=== PATIENT | female | born 1965 | race Two or more races ===

== ENCOUNTER 2024-12-02 12:37 | Emergency (ER) | payer MEDICAID, SELFPAY ==
[2024-12-02] VITALS (8 sets, daily range): BP systolic 140–174; BP diastolic 79–86; PULSE 86–110; RESP 18–28; TEMP 36.6–36.9; O2SAT 94–100
--- NOTE | 2024-12-02 12:44 | EKG_ITS ---
[facility] Test Date: 2024-12-02 Pat Name: MOE LEDBETTER Department: Room: - Gender: Female Jacquard Loom Weaver: : 1965 Requested By: ED Temporary Provider Order Number: [id number] Reading MD: ED Temporary Provider Measurements Intervals [place] Rate: 98 P: 60 NM: 150 QRS: 10 QRSD: 80 T: 65 QT: 344 QTc: 441 Interpretive Statements SINUS RHYTHM No previous ECG available for comparison /store/S0/[id number]/ecg/[id number].pdf
--- NOTE | 2024-12-02 12:52 | XR_ITS ---
Examination: AP chest single view TECHNIQUE: AP portable upright chest single view Date and time: December 02, 2024 1334 hours INDICATIONS: Coughing shortness of breath today. FINDINGS: Minimal opacity left base Normal heart size Right lung clear Prominent osteopenia IMPRESSION:: Suspicious for early left base pneumonia
--- NOTE | 2024-12-02 12:53 | PD.EDSOB ---
ED SOB =RME/HPI General Chief Complaint: Shortness of Breath/Dyspnea Stated Complaint: SOB X1 DAY Time Seen by Provider: 12/02/24 14:00 Source: patient Arrival date/time: 12/02/24 12:37 59-year-old female with no known medical history presents to the emergency room with a chief complaint of shortness of breath x 1 Mode of arrival: ambulatory Limitations: no limitations Related Data Allergies Allergy/AdvReac Type Severity Reaction Status Date / Time No Known Allergies Allergy Unverified 12/02/24 17:52 ED Exam General Limitations: Present no limitations Course Orders Category Date Time Status Bedside Influenza A&B Antigen Test NOW Care 12/02/24 12:52 Active EKG (ED ONLY) *Do not use* NOW Care 12/02/24 12:45 Completed EKG (ED Only) Stat Exams 12/02/24 12:44 Draft XR chest 1V portable Stat Exams 12/02/24 12:52 Completed COVID-19 Antigen (In-House) Stat Lab 12/02/24 Ordered Strep A Rapid Stat Lab 12/02/24 14:16 Ordered ALBUTEROL RT 0.5ml [Proventil Rt 0.5ml] Med 12/02/24 17:48 Discontinued 10 mg INH X1 ONE ALBUTEROL RT 0.5ml [Proventil Rt 0.5ml] Med 12/02/24 14:14 Discontinued 5 mg INH X1 ONE Albuterol/Ipratr Rt Mora [Duoneb Rt Mora] Med 12/02/24 12:52 Discontinued 3 ml INH X1 ONE Albuterol/Ipratr Rt Mora [Duoneb Rt Mora] Med 12/02/24 17:40 Discontinued 3 ml INH X1 ONE Dexamethasone Inj [Decadron Inj] Med 12/02/24 12:52 Discontinued 10 mg PO X1 ONE Vital Signs Vital signs: Vital Signs Temperature 98.2 F 12/02/24 12:43 Pulse Rate 103 H 12/02/24 12:43 Respiratory Rate 24 H 12/02/24 12:43 Blood Pressure 172/86 H 12/02/24 12:43 Pulse Oximetry (%) 94 L 12/02/24 12:43 Oxygen Delivery Method Room Air 12/02/24 12:43 Shortness of Breath / Dyspnea Medications / Prescriptions Medication administrations:: Medication Administration History Discontinued Medications Albuterol (Albuterol Rt 2.5 Mg/0.5 Ml Nebu) 5 mg INH X1 ONE Stop: 12/02/24 14:15 Albuterol (Albuterol Rt 2.5 Mg/0.5 Ml Nebu) 10 mg INH X1 ONE Stop: 12/02/24 17:49 Albuterol/Ipratropium (Albuterol/Ipratropium (Duoneb) Rt Mora 3 Ml Nebu) 3 ml INH X1 ONE Stop: 12/02/24 12:53 Last Admin: 12/02/24 13:09 Dose: 3 ml Documented By: GRISELDA Albuterol/Ipratropium (Albuterol/Ipratropium (Duoneb) Rt Mora 3 Ml Nebu) 3 ml INH X1 ONE Stop: 12/02/24 17:41 Dexamethasone Sodium Phosphate (Dexamethasone Sod Phos Inj 10 Mg/Ml Vial) 10 mg PO X1 ONE Stop: 12/02/24 12:53 Last Admin: 12/02/24 13:21 Dose: 10 mg Documented By: VANESSA Comments: GIVEN PO PER PROVIDER ORDERS Discharge Plan Prescriptions/Referrals Referrals: Navneet Badillo PA-C [Primary Care Provider] - In 1 week Patient/Caregiver Discharge Instructions Print Language: Maltese
[2024-12-02] MEDS: ALBUTEROL/IPRATROPIUM (Duoneb) RT SOL 3 ML NEBU INH (13:09)
[2024-12-02] MEDS: DEXAMETHASONE SOD PHOS INJ 10 MG/ML VIAL PO (13:21)
--- NOTE | 2024-12-02 17:30 | PC.NURSE ---
Called RT for another nebulizer tx.
--- NOTE | 2024-12-02 17:54 | PD.EDRME ---
Rapid Medical Screening Exam RME Arrival date/time: 12/02/24 12:37 59-year-old female with no known medical history presents to the emergency room with a chief complaint of shortness of breath x 1 day I have greeted and performed a focused initial assessment of this patient. A comprehensive ED assessment and evaluation of the patient, analysis of all test results, and completion of the medical decision making process will be conducted by additional ED providers. Chief Complaint: Shortness of Breath/Dyspnea Time Seen by Provider: 12/02/24 14:00 Vital signs: Vital Signs Temperature 98.2 F 12/02/24 12:43 Pulse Rate 103 H 12/02/24 12:43 Respiratory Rate 24 H 12/02/24 12:43 Blood Pressure 172/86 H 12/02/24 12:43 Pulse Oximetry (%) 94 L 12/02/24 12:43 Oxygen Delivery Method Room Air 12/02/24 12:43 Vital signs reviewed by provider: Yes
[2024-12-02] MEDS: ALBUTEROL RT 2.5 MG/0.5 ML NEBU 10 MG INH (18:00)
[2024-12-02 18:33] LABS: Strep A Rapid Negative (Negative)
[2024-12-02 18:34] LABS: COVID-19 Antigen (In-House) Negative (Negative)
--- NOTE | 2024-12-02 21:34 | EDNOTE_ITS ---
ED SOB =RME/HPI General Chief Complaint: Shortness of Breath/Dyspnea Stated Complaint: SOB X1 DAY Time Seen by Provider: 12/02/24 14:00 Arrival date/time: 12/02/24 12:37 RME / HPI RME / HPI Narrative: 12/02/24 12:37 59-year-old female with no known medical history presents to the emergency room with a chief complaint of shortness of breath x 1 day I have greeted and performed a focused initial assessment of this patient. A comprehensive ED assessment and evaluation of the patient, analysis of all test results, and completion of the medical decision making process will be conducted by additional ED providers. Related Data Previous Rx's ?Medication ?Instructions ?Recorded albuterol sulfate 90 mcg/actuation 2 puff inhalation Q 4H PRN 12/02/24 aerosol inhaler shortness of breath or wheez ing #8.5 grams cetirizine 10 mg tablet (Zyrtec) 10 mg PO QDAY PRN all ergy symptoms 12/02/24 #30 tabs doxycycline hyclate 100 mg 100 mg PO BID #14 tabs 06/28 tablet,delayed release montelukast 10 mg tablet 10 mg PO QPM #30 tabs (Singulair) Allergies Allergy/AdvReac Type Severity Reaction Status Date / Time No Known Allergies Allergy Unverified 12/02/24 17:52 Course Orders Category Date Time Status Bedside Influenza A&B Antigen Test NOW Care 12/02/24 12:52 Completed EKG (ED ONLY) *Do not use* NOW Care 12/02/24 12:45 Completed EKG (ED Only) Stat Exams 12/02/24 12:44 Draft XR chest 1V portable Stat Exams 12/02/24 12:52 Completed COVID-19 Antigen (In-House) Stat Lab 12/02/24 18:01 Completed Strep A Rapid Stat Lab 12/02/24 17:58 Completed ALBUTEROL RT 0.5ml [Proventil Rt 0.5ml] Med 12/02/24 17:48 Discontinued 10 mg INH X1 ONE ALBUTEROL RT 0.5ml [Proventil Rt 0.5ml] Med 12/02/24 14:14 Discontinued 5 mg INH X1 ONE Albuterol/Ipratr Rt Mora [Duoneb Rt Mora] Med 12/02/24 12:52 Discontinued 3 ml INH X1 ONE Albuterol/Ipratr Rt Mora [Duoneb Rt Mora] Med 12/02/24 17:40 Discontinued 3 ml INH X1 ONE Dexamethasone Inj [Decadron Inj] Med 12/02/24 12:52 Discontinued 10 mg PO X1 ONE Vital Signs Vital signs: Vital Signs Temperature 98.2 F 12/02/24 12:43 Pulse Rate 103 H 12/02/24 12:43 Respiratory Rate 24 H 12/02/24 12:43 Blood Pressure 172/86 H 12/02/24 12:43 Pulse Oximetry (%) 94 L 12/02/24 12:43 Oxygen Delivery Method Room Air 12/02/24 12:43 Shortness of Breath / Dyspnea Medications / Prescriptions Medication administrations:: Medication Administration History Discontinued Medications Albuterol (Albuterol Rt 2.5 Mg/0.5 Ml Nebu) 5 mg INH X1 ONE Stop: 12/02/24 14:15 Last Admin: 12/02/24 19:12 Dose: Not Given Documented By: HYACINTH Non-Admin Reason: Duplicate Medication on eMAR Albuterol (Albuterol Rt 2.5 Mg/0.5 Ml Nebu) 10 mg INH X1 ONE Stop: 12/02/24 17:49 Last Admin: 12/02/24 18:00 Dose: 10 mg Documented By: HYACINTH Albuterol/Ipratropium (Albuterol/Ipratropium (Duoneb) Rt Mora 3 Ml Nebu) 3 ml INH X1 ONE Stop: 12/02/24 12:53 Last Admin: 12/02/24 13:09 Dose: 3 ml Documented By: GRISELDA Albuterol/Ipratropium (Albuterol/Ipratropium (Duoneb) Rt Mora 3 Ml Nebu) 3 ml INH X1 ONE Stop: 12/02/24 17:41 Last Admin: 12/02/24 19:13 Dose: Not Given Documented By: HYACINTH Non-Admin Reason: Duplicate Medication on eMAR Dexamethasone Sodium Phosphate (Dexamethasone Sod Phos Inj 10 Mg/Ml Vial) 10 mg PO X1 ONE Stop: 12/02/24 12:53 Last Admin: 12/02/24 13:21 Dose: 10 mg Documented By: VANESSA Comments: GIVEN PO PER PROVIDER ORDERS Discharge Plan Plan Patient Disposition: HOME (Self Care) Discharge Disposition comment: Stable Prescriptions/Referrals Prescriptions/Med Rec: New albuterol sulfate 90 mcg/actuation HFA aerosol inhaler 2 puff inhalation Q4H PRN (Reason: shortness of breath or wheezing) Qty: 8.5 0RF montelukast [Singulair] 10 mg tablet 10 mg PO QPM Qty: 30 0RF cetirizine [Zyrtec] 10 mg tablet 10 mg PO QDAY PRN (Reason: allergy symptoms) Qty: 30 0RF doxycycline hyclate 100 mg tablet,delayed release (DR/EC) 100 mg PO BID Qty: 14 0RF Referrals: Navneet Badillo PA-C [Primary Care Provider] - In 1 week Problem List Clinical Impression: Asthma with exacerbation, Community acquired pneumonia Patient/Caregiver Discharge Instructions Education Materials: ED Asthma, Acute (Adult), ED Pneumonia (Adult) Additional Instructions: [place] los antibioticos phillip lo prescrito y complete elcurso a pesar de que puede sentirse major. Ivanna un seguimiento con jernigan medico de atencion primaria en 24 a 48 horas. Regresar al departamento de emergencias por cualquier sintoma nuevo o que empeore. Print Language: [place] Stand Alone Forms: Maryam Award Info., Patient Portal Info Letter PA/JACK Supervising Physician PA/JACK Supervising Physician: Dr. Bateman
== END 2024-12-02 22:09 | disposition home or self-care (01) ==
PROVIDERS: Physician Assistant; Emergency Provider Emergency Medicine; PCP Physician Assistant
DX: J45.901 Unspecified asthma with (acute) exacerbation (principal); J18.9 Pneumonia, unspecified organism
CPT/HCPCS: 71045; 87400; 87651; 87811; 93005; 94640; 94644; 99284; A9270; J1100